=== PATIENT | female | born 1960 | race Caucasian/White ===

== ENCOUNTER 2018-04-04 03:21 | Emergency (ER) | payer MEDICAID, OTHER ==
[~2018-04-04] VITALS: Ht 162.6 cm; Wt 91.0 kg
[~2018-04-04 03:21] MED LIST: ACET-2178 PO; INSULIN 70/30; LANS30CA55 PO; LOSA25TA12 PO
[2018-04-04] MEDS ORDERED: IBUPROFEN 600MG TABLET PO STA (06:28)
[2018-04-04 07:57] VITALS: BP 156/71
== END 2018-04-04 08:02 | disposition home or self-care (01) ==
LOC: ER 07:41
DX: G47.00 Insomnia, unspecified (principal); E11.9 Type 2 diabetes mellitus without complications; E78.00 Pure hypercholesterolemia, unspecified; I10 Essential (primary) hypertension; F17.200 Nicotine dependence, unspecified, uncomplicated; Z90.710 Acquired absence of both cervix and uterus; Z79.899 Other long term (current) drug therapy; Z79.4 Long term (current) use of insulin
CPT/HCPCS: 99283

== ENCOUNTER 2018-07-23 07:55 | Emergency (ER) | payer OTHER ==
[~2018-07-23] VITALS: Ht 154.9 cm; Wt 91.0 kg
[2018-07-23] MEDS ORDERED: IBUPROFEN 600MG TABLET PO STA (10:19)
[2018-07-23 11:24] VITALS: BP 160/69
== END 2018-07-23 11:25 | disposition home or self-care (01) ==
LOC: ER 08:18
DX: M25.531 Pain in right wrist (principal); E11.9 Type 2 diabetes mellitus without complications; E78.00 Pure hypercholesterolemia, unspecified; W01.0XXA Fall on same level from slipping, tripping and stumbling without subsequent striking against object, initial encounter; Y93.89 Activity, other specified; Y92.89 Other specified places as the place of occurrence of the external cause; Y99.8 Other external cause status; Z90.710 Acquired absence of both cervix and uterus; Z79.4 Long term (current) use of insulin
CPT/HCPCS: 73060; 73110; 81025; 99283